=== PATIENT | male | born 1965 | race American Indian/Alaskan Native ===

== ENCOUNTER 2018-06-27 10:56 | Day surgery (SDC) | payer OTHER ==
[2018-06-27 12:05] LABS: INR 0.91 (0.87-1.13)
[2018-06-27 12:14] LABS: Free T4 (Free Thyroxine) 1.36 ng/dL (0.76-1.46)
[2018-06-27 14:39] VITALS: BP 129/80
--- NOTE | 2018-06-27 14:45 | Short Stay Summary ---
Short Stay Documentation Date of service: 06/27/18 - History Principal diagnosis: right thyroid mass H&P: obtained from office - Allergies and Medications Current Medications: Allergies No Known Allergies Allergy (Unverified 06/27/18 10:56) - Physical exam General appearance: no acute distress HEENT: Other (palpable right thyroid nodule) - Brief post op/procedure progress note Date of procedure: 06/27/18 Pre-op diagnosis: thyroid mass Post-op diagnosis: same Procedure: US thyroid biopsy Anesthesia: local Surgeon: VIJI KITCHEN Estimated blood loss: none Pathology: list (FNA x 2, rotex biopsy) Condition: stable - Disposition Condition at discharge: Good Disposition: DC-01 TO HOME OR SELFCARE Short Stay Discharge Plan Follow up with: PRIMARY CARE, [Primary Care Provider] - 7 Days
--- NOTE | 2018-06-27 14:47 | Ultrasound Report ---
ULTRASOUND BIOPSY THYROID History: Thyroid nodule Description of procedure: Informed consent was obtained. Sterile technique was utilized. 1% lidocaine for skin anesthesia. Using ultrasound guidance, 2 fine needle aspirations and one Rotex biopsy were obtained from approximate 4 cm partially cystic mass near the superior pole the right thyroid lobe. These samples were deemed adequate by the pathologist on site. No complications. IMPRESSION: Successful ultrasound-guided biopsy of a right thyroid lobe mass as described.
== END 2018-06-27 14:47 | disposition home or self-care (01) ==
LOC: CATHLABREC 10:56
PROVIDERS: ATTEND Otolaryngology
DX: E04.1 Nontoxic single thyroid nodule (principal); Z80.8 Family history of malignant neoplasm of other organs or systems
CPT/HCPCS: 36415; 60100; 76942; 84439; 84443; 85610; 88112; 88172; 88173; 88305